=== PATIENT | female | born 1960 | race Asian ===

== ENCOUNTER 2018-09-25 09:29 | Emergency (ER) | payer BC ==
[~2018-09-25] VITALS: Ht 154.9 cm; Wt 62.1 kg
[2018-09-25 09:42] VITALS: BP 150/84
--- NOTE | 2018-09-25 09:54 | NUR ---
PT AMB TO BED 1
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
[2018-09-25] MEDS ORDERED: LIDOCAINE 1% 500 MG/50 ML VIAL INJ SCH (10:40)
--- NOTE | 2018-09-25 10:45 | NUR ---
LIDOCAINE AT BEDSIDE FOR DR GUSMAN
[2018-09-25] MEDS ORDERED: LIDOCAINE MPF 1% 5mL VIAL ONE (10:52)
--- NOTE | 2018-09-25 10:53 | NUR ---
DR GUSMAN AT BEDSIDE REPAIRING LACERATION
[2018-09-25 11:21] VITALS: BP 145/82
--- NOTE | 2018-09-25 11:21 | NUR ---
Patient discharged with v/s stable. Written and verbal after care instructions given and explained. Patient verbalized understanding. Ambulatory with steady gait. All questions addressed prior to discharge. Advised to follow up with PMD.
== END 2018-09-25 11:21 | disposition home or self-care (01) ==
LOC: MED 09:29
DX: S61.511A Laceration without foreign body of right wrist, initial encounter (principal); I10 Essential (primary) hypertension; W45.8XXA Other foreign body or object entering through skin, initial encounter; Y93.89 Activity, other specified; Y92.89 Other specified places as the place of occurrence of the external cause; Y99.8 Other external cause status
CPT/HCPCS: 12002; 99283; J2001

== ENCOUNTER 2018-10-02 08:48 | Emergency (ER) | payer BC ==
[~2018-10-02] VITALS: Ht 157.5 cm; Wt 59.0 kg
[2018-10-02 08:52] VITALS: BP 145/87
--- NOTE | 2018-10-02 09:00 | NUR ---
PT AMB TO BED 4
--- NOTE | 2018-10-02 09:03 | NUR ---
came in for suture removal on l wrist, wound is C/D/I, pt reports no pain.SKIN IS PINK/WARM/DRY; AAOX4 WITH EVEN AND STEADY GAIT; VSS; PATIENT POSITIONED FOR COMFORT; HOB ELEVATED; BEDRAILS UP X1; BED DOWN. ER MD MADE AWARE OF PT STATUS.
--- NOTE | 2018-10-02 09:05 | NUR ---
ermd at bedside
[2018-10-02] MEDS ORDERED: BACITRACIN OINT 500 UNITS/GM PKT TP ONE (09:18)
[2018-10-02 09:22] VITALS: BP 145/87
== END 2018-10-02 09:22 | disposition home or self-care (01) ==
LOC: MED 08:48
DX: S61.412D Laceration without foreign body of left hand, subsequent encounter (principal); X58.XXXD Exposure to other specified factors, subsequent encounter
CPT/HCPCS: 99281